=== PATIENT | female | born 1960 | race Caucasian/White ===

== ENCOUNTER 2018-09-06 12:05 | Emergency (ER) | payer MEDICARE ==
[~2018-09-06 12:05] MED LIST: ALEN70TA10 PO; BUTA-256 PO; CALC600T12 PO; CHOL200026 PO; CLON0.5T12 PO; CREON12 PO; CYAN1TAB44 PO; DOCU-272 PO; DULO60CA63 PO; FURO20TA4 PO; GABA-531 PO; HYDR100V3 IJ; HYDR20TA23 PO; HYDR8TAB18 PO; LACT10SO32 PO; LACT1CAP72 PO; LEVE500T19 PO; LEVE750T10 PO; LIDOP TP; METO10TA41 PO; MULT1TAB70 PO; PANT40TA25 PO; PROM50TA3 PO; RANI150T7 PO; RIVA10TA PO; SUCR1TAB PO; TAMS0.4C32 PO; TRAZ150T79 PO
[2018-09-06] MEDS ORDERED: METOCLOPRAMIDE 10 MG/2 ML VIAL ONE (13:26)
[2018-09-06 13:38] LABS: BASOPHILS % (AUTO) 1.3 % (0.0-5.0); EOSINOPHILS % (AUTO) 0.4 % (0.0-8.0); HEMATOCRIT 35.8 % (36-48); LYMPHOCYTES % (AUTO) 20.9 % (21.0-51.0); MEAN CORPUSCULAR HEMOGLOBIN 31.7 pg (27.0-33.0); MEAN CORPUSCULAR HGB CONC 32.9 g/dL (32.0-36.0); MEAN CORPUSCULAR VOLUME 96.4 fL (79-99); MONOCYTES % (AUTO) 9.3 % (3.0-13.0); NEUTROPHILS % (AUTO) 68.1 % (40.0-77.0); PLATELET COUNT (AUTO) 252 K/uL (130-400); RED BLOOD CELL COUNT(AUTO) 3.72 MIL/uL (4.00-5.50); RED CELL DISTRIBUTION WIDTH 14.9 % (11.0-15.5); WHITE BLOOD COUNT (AUTO) 11.1 K/uL (4.8-10.8)
[2018-09-06 13:53] LABS: INR 0.94 (0.85-1.15); PARTIAL THROMBOPLASTIN TIME 25.8 SEC (26.3-35.5); PROTHROMBIN TIME 9.9 SEC (9.6-11.6)
[2018-09-06 13:58] LABS: B-TYPE NATRIURETIC PEPTIDE 13 pg/mL (0-100)
[2018-09-06 14:07] LABS: ALBUMIN 3.2 g/dL (3.5-5.0); BILIRUBIN,TOTAL 0.3 mg/dL (0.2-1.0); CREATININE 0.7 mg/dL (0.5-1.5)
[2018-09-06 14:12] LABS: POTASSIUM 2.7 mmol/L (3.5-5.1)
[2018-09-06] MEDS ORDERED: MAGNESIUM OXIDE 400 MG TABLET PO ONE (14:25)
[2018-09-06] MEDS ORDERED: POTASSIUM BICARB/CIT AC 25 MEQ TABLET.EFF ONE (14:25)
[2018-09-06] MEDS ORDERED: ACETAMINOPHEN EXTRA STRENGTH 500 MG TABLET ONE (15:53)
== END 2018-09-06 16:49 | disposition home or self-care (01) ==
LOC: EDH 12:05
DX: E87.6 Hypokalemia (principal); R11.2 Nausea with vomiting, unspecified; R19.7 Diarrhea, unspecified
CPT/HCPCS: 36415; 71045; 80053; 82550; 83690; 83874; 83880; 84132; 84484 ×2; 85025; 85610; 85730; 93005 ×2; 96374; 99284; J2765

== ENCOUNTER 2018-09-15 22:23 | Emergency (ER) | payer MEDICARE ==
[2018-09-15] MEDS ORDERED: KETOROLAC TROMETHAMINE 15MG/ML ONE ×2 (23:03→23:53)
[2018-09-15] MEDS ORDERED: METOCLOPRAMIDE 10 MG/2 ML VIAL ONE (23:03)
[2018-09-15] MEDS ORDERED: SODIUM CHLORIDE 0.9% 50 ML IV ONE (23:04)
[2018-09-15 23:16] LABS: BASOPHILS % (AUTO) 0.7 % (0.0-5.0); EOSINOPHILS % (AUTO) 0.6 % (0.0-8.0); HEMATOCRIT 35.6 % (36-48); MEAN CORPUSCULAR HEMOGLOBIN 32.8 pg (27.0-33.0); MEAN CORPUSCULAR HGB CONC 33.3 g/dL (32.0-36.0); MEAN CORPUSCULAR VOLUME 98.3 fL (79-99); MONOCYTES % (AUTO) 8.4 % (3.0-13.0); NEUTROPHILS % (AUTO) 73.3 % (40.0-77.0); PLATELET COUNT (AUTO) 257 K/uL (130-400); RED BLOOD CELL COUNT(AUTO) 3.63 MIL/uL (4.00-5.50); RED CELL DISTRIBUTION WIDTH 15.5 % (11.0-15.5); WHITE BLOOD COUNT (AUTO) 9.2 K/uL (4.8-10.8)
[2018-09-15 23:25] LABS: INR 0.92 (0.85-1.15); PROTHROMBIN TIME 9.7 SEC (9.6-11.6)
[2018-09-15 23:27] LABS: CREATININE 0.7 mg/dL (0.5-1.5); POTASSIUM 3.8 mmol/L (3.5-5.1)
[2018-09-15 23:40] LABS: ALBUMIN 3.2 g/dL (3.5-5.0); BILIRUBIN,TOTAL 0.2 mg/dL (0.2-1.0); TOTAL PROTEIN, SERUM 6.9 g/dL (6.0-8.3)
[2018-09-15] MEDS ORDERED: ACETAMINOPHEN EXTRA STRENGTH 500 MG TABLET ONE (23:53)
[2018-09-16 00:18] LABS: APPEARANCE,URINE Clear (CLEAR); BILIRUBIN,URINE Negative (NEGATIVE); COLOR,URINE Yellow (YELLOW); GLUCOSE, URINE (UA) Negative (NEGATIVE); KETONES,URINE Trace mg/dL (NEGATIVE); LEUKOCYTE ESTERASE ,URINE Negative (NEGATIVE); NITRATE,URINE Positive (NEGATIVE); OCCULT BLOOD,URINE Trace (NEGATIVE); PH,URINE 5.5 (5.0-8.0); PROTEIN,URINE Trace (NEGATIVE)
[2018-09-16 00:34] LABS: BACTERIA,URINE Rare /HPF (None Seen); WBC,URINE 0-1 /HPF (0-1)
[2018-09-16 00:35] LABS: SQUAMOUS EPITHELIAL CELL,UR Few /HPF (0-2)
== END 2018-09-16 00:52 | disposition home or self-care (01) ==
LOC: EDH 22:23
DX: N39.0 Urinary tract infection, site not specified (principal); G89.29 Other chronic pain; M79.7 Fibromyalgia; M19.90 Unspecified osteoarthritis, unspecified site; Z90.710 Acquired absence of both cervix and uterus; Z90.49 Acquired absence of other specified parts of digestive tract; Z98.890 Other specified postprocedural states
CPT/HCPCS: 36415; 74176; 80053; 81001; 82550; 83690; 84484; 85025; 85610; 85730; 87077; 87088; 87186; 93005; 96374; 96375; 96376; 99284; J1885 ×2; J2765

== ENCOUNTER 2018-09-29 23:49 | Emergency (ER) | payer MEDICARE ==
[2018-09-30 02:00] LABS: BASOPHILS % (AUTO) 0.5 % (0.0-5.0); EOSINOPHILS % (AUTO) 0.6 % (0.0-8.0); HEMATOCRIT 38.5 % (36-48); LYMPHOCYTES % (AUTO) 9.1 % (21.0-51.0); MEAN CORPUSCULAR HEMOGLOBIN 32.7 pg (27.0-33.0); MEAN CORPUSCULAR HGB CONC 32.9 g/dL (32.0-36.0); MEAN CORPUSCULAR VOLUME 99.3 fL (79-99); MONOCYTES % (AUTO) 5.7 % (3.0-13.0); NEUTROPHILS % (AUTO) 84.1 % (40.0-77.0); NUCLEATED RED BLOOD CELLS 0.2 % (0.0-0.19); RED BLOOD CELL COUNT(AUTO) 3.88 MIL/uL (4.00-5.50); RED CELL DISTRIBUTION WIDTH 16.4 % (11.0-15.5)
[2018-09-30 02:10] LABS: CREATININE 0.6 mg/dL (0.5-1.5); POTASSIUM 3.8 mmol/L (3.5-5.1)
[2018-09-30] MEDS ORDERED: METHYLPREDNISOLONE SOD SUCC 40MG/ML 1ML ONE (02:12)
[2018-09-30] MEDS ORDERED: KETOROLAC TROMETHAMINE 60 MG/2 ML VIAL ONE (02:13)
[2018-09-30 02:14] LABS: ALBUMIN 3.4 g/dL (3.5-5.0); BILIRUBIN,TOTAL 0.3 mg/dL (0.2-1.0); TOTAL PROTEIN, SERUM 6.7 g/dL (6.0-8.3)
[2018-09-30 02:37] LABS: PLATELET COUNT (AUTO) 289 K/uL (130-400)
== END 2018-09-30 04:11 | disposition home or self-care (01) ==
LOC: EDH 23:49
DX: K86.1 Other chronic pancreatitis (principal); M79.7 Fibromyalgia; R94.6 Abnormal results of thyroid function studies; M81.0 Age-related osteoporosis without current pathological fracture; Z90.710 Acquired absence of both cervix and uterus; Z90.49 Acquired absence of other specified parts of digestive tract; Z79.899 Other long term (current) drug therapy
CPT/HCPCS: 36415; 80053; 82550; 83690; 84443; 84484; 85025; 87804 ×2; 93005; 96372 ×2; 99284; J1885; J2920

== ENCOUNTER 2019-01-18 09:51 | Inpatient (IN) | payer MEDICARE | END 2019-01-23 14:21 | disposition home or self-care (01) | LOC: EDH 09:51 → EDHIP 11:57 → 3CH 15:44 | DX: K85.90 Acute pancreatitis without necrosis or infection, unspecified (principal); E86.0 Dehydration; K86.1 Other chronic pancreatitis; R55 Syncope and collapse; K31.84 Gastroparesis; E66.01 Morbid (severe) obesity due to excess calories; E87.8 Other disorders of electrolyte and fluid balance, not elsewhere classified; B96.89 Other specified bacterial agents as the cause of diseases classified elsewhere; I10 Essential (primary) hypertension ==

== ENCOUNTER 2019-01-28 13:03 | Observation (INO) | payer MEDICARE ==
[~2019-01-28] VITALS: Ht 154.9 cm; Wt 103.7 kg
[~2019-01-28 13:03] MED LIST changes: -ALEN70TA10 PO; +BUPR100T13 PO; -BUTA-256 PO; -CALC600T12 PO; +CARV25TA PO; -CHOL200026 PO; +CHOL50002 PO; -CLON0.5T12 PO; -CYAN1TAB44 PO; -DOCU-272 PO; -DULO60CA63 PO; -FURO20TA4 PO; -GABA-531 PO; +GABA600T10 PO; +HYDR-3422 PO; +HYDR-4068 PO; -HYDR100V3 IJ; -HYDR20TA23 PO; -HYDR8TAB18 PO; -LACT10SO32 PO; -LACT1CAP72 PO; -LEVE500T19 PO; -LEVE750T10 PO; -LIDOP TP; +LORA1TAB3 PO; +LOSA100T58 PO; +MAGN400C PO; -METO10TA41 PO; +MULT-1203 PO; -MULT1TAB70 PO; -PANT40TA25 PO; +POTA-79 PO; +PRAS25CA9 PO; -PROM50TA3 PO; -RANI150T7 PO; -RIVA10TA PO; -SUCR1TAB PO; +SUCR1TAB2 PO; +TAMS-1 PO; -TAMS0.4C32 PO; -TRAZ150T79 PO
[2019-01-28 13:23] LABS: BASOPHILS % (AUTO) 0.7 % (0.0-5.0); EOSINOPHILS % (AUTO) 0.7 % (0.0-8.0); HEMATOCRIT 45.8 % (36-48); LYMPHOCYTES % (AUTO) 11.3 % (21.0-51.0); MEAN CORPUSCULAR HEMOGLOBIN 32.4 pg (27.0-33.0); MEAN CORPUSCULAR VOLUME 98.1 fL (79-99); MONOCYTES % (AUTO) 5.6 % (3.0-13.0); NEUTROPHILS % (AUTO) 81.7 % (40.0-77.0); NUCLEATED RED BLOOD CELLS 0.1 % (0.0-0.19); PLATELET COUNT (AUTO) 300 K/uL (130-400); RED BLOOD CELL COUNT(AUTO) 4.67 MIL/uL (4.00-5.50); RED CELL DISTRIBUTION WIDTH 13.9 % (11.0-15.5); WHITE BLOOD COUNT (AUTO) 14.7 K/uL (4.8-10.8)
[2019-01-28 13:31] LABS: CREATININE 0.9 mg/dL (0.5-1.5); POTASSIUM 4.1 mmol/L (3.5-5.1)
[2019-01-28 13:34] LABS: BILIRUBIN,TOTAL 0.8 mg/dL (0.2-1.0)
[2019-01-28 13:36] LABS: INR 0.9 (0.85-1.15); PARTIAL THROMBOPLASTIN TIME 22.7 SEC (26.3-35.5); PROTHROMBIN TIME 9.5 SEC (9.6-11.6)
[2019-01-28 13:58] LABS: APPEARANCE,URINE Clear (CLEAR); BILIRUBIN,URINE Negative (NEGATIVE); COLOR,URINE Dark Yellow (YELLOW); GLUCOSE, URINE (UA) Negative (NEGATIVE); KETONES,URINE Trace mg/dL (NEGATIVE); LEUKOCYTE ESTERASE ,URINE Trace (NEGATIVE); NITRATE,URINE Negative (NEGATIVE); OCCULT BLOOD,URINE Negative (NEGATIVE); PH,URINE 5.5 (5.0-8.0); PROTEIN,URINE Trace mg/dL (NEGATIVE)
[2019-01-28 14:04] LABS: RBC,URINE 0-1 /HPF (0-1); WBC,URINE 0-1 /HPF (0-1)
[2019-01-28 14:05] LABS: BACTERIA,URINE Rare /HPF (None Seen); MUCUS,URINE Few LPF (None Seen); SQUAMOUS EPITHELIAL CELL,UR Few /HPF (0-2)
[2019-01-28] MEDS ORDERED: SODIUM CHLORIDE 0.9% 1000ML 1,000 ML IV ONE (16:19)
[2019-01-28] MEDS ORDERED: METRONIDAZOLE 500MG/100ML BAG 100 ML ONE (16:19)
[2019-01-28] MEDS ORDERED: ONDANSETRON HCL 4 MG/2 ML VIAL ONE (16:19)
[2019-01-28] MEDS ORDERED: KETOROLAC TROMETHAMINE 15MG/ML ONE (16:19)
[2019-01-28] MEDS ORDERED: LEVOFLOXACIN 500 MG/D5W 100 ML 100 ML ONE (17:20)
[2019-01-28] MEDS ORDERED: SODIUM CHLORIDE 0.9% 1000ML 2,000 ML IV ONE (17:20)
[2019-01-28] MEDS ORDERED: MORPHINE SULFATE 2 MG/ML 1ML SYG ONE (17:21)
[2019-01-28 19:10] VITALS: BP 137/75
[2019-01-28] MEDS ORDERED: LOPE2 PO (20:42)
[2019-01-28] MEDS ORDERED: DIPH1TAB PO (20:42)
[2019-01-28] MEDS ORDERED: HYDR20TA23 PO (20:42)
[2019-01-28] MEDS ORDERED: BACL10TA PO (20:42)
[2019-01-28] MEDS ORDERED: [UNRECOGNIZED DRUG - CODE] IM (20:42)
[2019-01-28] MEDS ORDERED: PROM25 PO (20:42)
[2019-01-28] MEDS ORDERED: METOCLOPRAMIDE 10 MG/2 ML VIAL IVP PRN (21:00)
[2019-01-28] MEDS ORDERED: ALPRAZOLAM 0.5 MG TABLET PO PRN (21:00)
[2019-01-28] MEDS ORDERED: LABETALOL 20 MG/4 ML DISP.SYRIN IV PRN (21:00)
[2019-01-28] MEDS ORDERED: ACETAMINOPHEN 325 MG TAB PO PRN (21:00)
[2019-01-28] MEDS: ONDANSETRON HCL 4 MG/2 ML VIAL IVP PRN (21:43)
[2019-01-28] MEDS: SODIUM CHLORIDE 0.9% 1000ML 1,000 ML IV SCH (21:43)
[2019-01-28] MEDS: METRONIDAZOLE 500MG/100ML BAG 100 ML IV SCH (21:43)
[2019-01-28] MEDS: MORPHINE SULFATE 2 MG/ML 1ML SYG IVP PRN (21:44)
[2019-01-28 23:56] VITALS: BP 110/51
[2019-01-29] MEDS: MORPHINE SULFATE 2 MG/ML 1ML SYG IVP PRN ×4 (00:10→14:38)
[2019-01-29] MEDS ORDERED: HYDROXYZINE HCL 25 MG TABLET PO SCH (02:30)
[2019-01-29 04:20] VITALS: BP 130/74
[2019-01-29 05:23] LABS: BASOPHILS % (AUTO) 0.5 % (0.0-5.0); EOSINOPHILS % (AUTO) 2.3 % (0.0-8.0); HEMATOCRIT 36.4 % (36-48); LYMPHOCYTES % (AUTO) 30.9 % (21.0-51.0); MEAN CORPUSCULAR HGB CONC 33.1 g/dL (32.0-36.0); MEAN CORPUSCULAR VOLUME 99.7 fL (79-99); MONOCYTES % (AUTO) 8.5 % (3.0-13.0); NEUTROPHILS % (AUTO) 57.8 % (40.0-77.0); PLATELET COUNT (AUTO) 208 K/uL (130-400); RED BLOOD CELL COUNT(AUTO) 3.65 MIL/uL (4.00-5.50); RED CELL DISTRIBUTION WIDTH 13.9 % (11.0-15.5); WHITE BLOOD COUNT (AUTO) 5.9 K/uL (4.8-10.8)
[2019-01-29] MEDS: SUCRALFATE 1 GM TABLET PO SCH ×3 (06:30→16:21)
[2019-01-29] MEDS: METRONIDAZOLE 500MG/100ML BAG 100 ML IV SCH ×2 (06:30→16:21)
[2019-01-29] MEDS: SODIUM CHLORIDE 0.9% 1000ML 1,000 ML IV SCH (06:32)
[2019-01-29 07:00] VITALS: BP 122/67
[2019-01-29] MEDS ORDERED: CARVEDILOL 25 MG TABLET PO SCH (09:00)
[2019-01-29] MEDS ORDERED: LOSARTAN 100 MG TABLET PO SCH (09:00)
[2019-01-29] MEDS ORDERED: TAMSULOSIN HCL 0.4 MG CAP.ER.24H PO SCH (09:00)
[2019-01-29] MEDS ORDERED: POTASSIUM CHLORIDE 20 MEQ ERTAB PO SCH (09:00)
[2019-01-29] MEDS ORDERED: LEVOFLOXACIN 500 MG/D5W 100 ML 100 ML IV SCH (09:00)
[2019-01-29] MEDS ORDERED: **HM** DHEA 25MG PO SCH (09:00)
[2019-01-29] MEDS: BACLOFEN 10 MG TABLET PO SCH ×2 (09:00→16:21)
[2019-01-29] MEDS: GABAPENTIN 300 MG CAPSULE PO SCH ×2 (09:01→16:21)
[2019-01-29] MEDS: ONDANSETRON HCL 4 MG/2 ML VIAL IVP PRN (10:23)
[2019-01-29 11:00] VITALS: BP 113/69
--- NOTE | 2019-01-29 12:27 | NUR ---
DELROY Gardner met with pt who lives with her [id number]. Pt states assists with ADLS as needed, she has 2 walkers, no in home care services. Pt denies dc needs, plan is home at dc Addendum: 01/29/19 at 1228 by MANGO MORENO Amended: Links added.
[2019-01-29] MEDS ORDERED: BUPROPION HCL 150 MG PO SCH (21:00)
== END 2019-01-29 19:27 | disposition home or self-care (01) ==
LOC: EDH 13:03 → EDHIP 16:10 → 3CH 20:15
PROVIDERS: ADMIT Internal Medicine Pulmonary Disease; ATTEND Internal Medicine Pulmonary Disease
DX: K86.1 Other chronic pancreatitis (principal); E66.01 Morbid (severe) obesity due to excess calories; E86.0 Dehydration; M81.0 Age-related osteoporosis without current pathological fracture; K31.84 Gastroparesis; K52.9 Noninfective gastroenteritis and colitis, unspecified; K90.9 Intestinal malabsorption, unspecified; F41.9 Anxiety disorder, unspecified; Z90.710 Acquired absence of both cervix and uterus; Z79.899 Other long term (current) drug therapy
CPT/HCPCS: 36415 ×2; 74176; 80053; 81001; 82150; 82270; 82550; 83630; 83690; 85025 ×2; 85610; 85730; 87046; 87177; 87324; 93005; 96365; 96366; 96367; 96375; 96376; 99284; G0378 ×26; J1885; J1956 ×2; J2405 ×3; J2765; J3490 ×4; J7030 ×2

== ENCOUNTER 2019-09-17 17:19 | Emergency (ER) | payer MEDICARE ==
[~2019-09-17 17:19] MED LIST changes: +ACET-2743 PO; -BUPR100T13 PO; -CHOL50002 PO; -CREON12 PO; +DULO60CA64 PO; +FURO40TA7 PO; +HYDR20TA23 PO; +LIDO73LI TP; -MAGN400C PO; +OMEP40CA13 PO; -PRAS25CA9 PO; +PROM25 PO; -TAMS-1 PO; +TRAM50TA4 PO; +TUMS
[2019-09-17] MEDS ORDERED: ONDANSETRON 4 MG TABLET ONE (17:48)
[2019-09-17] MEDS ORDERED: DEXAMETHASONE SOD PHOSPHATE 10MG/ML 1ML VIAL ONE (17:48)
[2019-09-17] MEDS ORDERED: MORPHINE SULFATE 4 MG/1ML SYG ONE (17:49)
[2019-09-17] MEDS ORDERED: VALACYCLOVIR HCL 500 MG TABLET PO ONE (19:00)
== END 2019-09-17 18:25 | disposition home or self-care (01) ==
LOC: EDH 17:19
DX: B02.9 Zoster without complications (principal); M19.90 Unspecified osteoarthritis, unspecified site; Z90.710 Acquired absence of both cervix and uterus
CPT/HCPCS: 96372; 99283; J1100; J2270; Q0162

== ENCOUNTER 2019-11-07 20:24 | Emergency (ER) | payer MEDICARE ==
[2019-11-07 20:49] LABS: BASOPHILS % (AUTO) 0.4 % (0.0-5.0); EOSINOPHILS % (AUTO) 0.5 % (0.0-8.0); HEMATOCRIT 37.3 % (36-48); LYMPHOCYTES % (AUTO) 24.4 % (21.0-51.0); MEAN CORPUSCULAR HEMOGLOBIN 34.7 pg (27.0-33.0); MEAN CORPUSCULAR VOLUME 105.4 fL (79-99); MONOCYTES % (AUTO) 9.3 % (3.0-13.0); NEUTROPHILS % (AUTO) 63.6 % (40.0-77.0); PLATELET COUNT (AUTO) 250 K/uL (130-400); RED BLOOD CELL COUNT(AUTO) 3.54 MIL/uL (4.00-5.50); RED CELL DISTRIBUTION WIDTH 15.8 % (11.0-15.5); WHITE BLOOD COUNT (AUTO) 7.3 K/uL (4.8-10.8)
[2019-11-07 21:00] LABS: CREATININE 0.9 mg/dL (0.5-1.5); POTASSIUM 3.7 mmol/L (3.5-5.1)
[2019-11-07 21:03] LABS: INR 0.89 (0.85-1.15); PARTIAL THROMBOPLASTIN TIME 20.9 SEC (26.3-35.5); PROTHROMBIN TIME 9.7 SEC (9.6-11.6)
[2019-11-07 21:05] LABS: ALBUMIN 3.3 g/dL (3.5-5.0); BILIRUBIN,TOTAL 0.2 mg/dL (0.2-1.0); TOTAL PROTEIN, SERUM 6.8 g/dL (6.0-8.3)
[2019-11-07 21:13] LABS: B-TYPE NATRIURETIC PEPTIDE 29 pg/mL (0-100)
[2019-11-07] MEDS ORDERED: ONDANSETRON HCL 4 MG/2 ML VIAL ONE (21:13)
[2019-11-07] MEDS ORDERED: MORPHINE SULFATE 4 MG/1ML SYG ONE (21:14)
[2019-11-07] MEDS ORDERED: IOHEXOL-350 75 ML VIAL IV ONE (21:30)
[2019-11-07] MEDS ORDERED: ACETAMINOPHEN-CODEINE 300/30MG TAB ONE (22:47)
[2019-11-07] MEDS ORDERED: FUROSEMIDE 10 MG/ML 4ML VIAL ONE (22:48)
== END 2019-11-07 23:25 | disposition home or self-care (01) ==
LOC: EDH 20:24
DX: R60.0 Localized edema (principal); F41.9 Anxiety disorder, unspecified; M79.7 Fibromyalgia; R06.02 Shortness of breath; M19.90 Unspecified osteoarthritis, unspecified site; M81.0 Age-related osteoporosis without current pathological fracture; Z90.710 Acquired absence of both cervix and uterus; Z98.890 Other specified postprocedural states
CPT/HCPCS: 36415; 71045; 71275; 73590; 73630; 80053; 82550; 83880; 84484; 85025; 85610; 85730; 93005; 93970; 96374; 96375; 99285; J1940; J2270; J2405; Q9967

== ENCOUNTER 2019-11-17 13:55 | Emergency (ER) | payer MEDICARE ==
[2019-11-17 14:43] LABS: BASOPHILS % (AUTO) 0.3 % (0.0-5.0); EOSINOPHILS % (AUTO) 0.1 % (0.0-8.0); HEMATOCRIT 35.2 % (36-48); LYMPHOCYTES % (AUTO) 9.5 % (21.0-51.0); MEAN CORPUSCULAR HGB CONC 32.4 g/dL (32.0-36.0); MEAN CORPUSCULAR VOLUME 105.1 fL (79-99); MONOCYTES % (AUTO) 7.4 % (3.0-13.0); NEUTROPHILS % (AUTO) 81.2 % (40.0-77.0); PLATELET COUNT (AUTO) 227 K/uL (130-400); RED BLOOD CELL COUNT(AUTO) 3.35 MIL/uL (4.00-5.50); RED CELL DISTRIBUTION WIDTH 15.8 % (11.0-15.5); WHITE BLOOD COUNT (AUTO) 7.2 K/uL (4.8-10.8)
[2019-11-17 14:53] LABS: CREATININE 0.9 mg/dL (0.5-1.5); POTASSIUM 4.2 mmol/L (3.5-5.1)
[2019-11-17 14:58] LABS: ALBUMIN 3.3 g/dL (3.5-5.0); BILIRUBIN,TOTAL 0.3 mg/dL (0.2-1.0); TOTAL PROTEIN, SERUM 6.5 g/dL (6.0-8.3)
[2019-11-17] MEDS ORDERED: ONDANSETRON HCL 4 MG/2 ML VIAL ONE (15:44)
[2019-11-17] MEDS ORDERED: MORPHINE SULFATE 4 MG/1ML SYG ONE (15:44)
[2019-11-17 16:09] LABS: B-TYPE NATRIURETIC PEPTIDE 33 pg/mL (0-100)
== END 2019-11-17 17:36 | disposition home or self-care (01) ==
LOC: EDH 13:55
DX: I89.0 Lymphedema, not elsewhere classified (principal); G89.29 Other chronic pain; E66.01 Morbid (severe) obesity due to excess calories; M79.7 Fibromyalgia; I10 Essential (primary) hypertension; M19.90 Unspecified osteoarthritis, unspecified site
CPT/HCPCS: 36415; 71045; 80053; 83690; 83880; 84484; 85025; 85378; 93005; 93970; 96374; 96375; 99291; J2270; J2405

== ENCOUNTER 2019-12-03 08:01 | Inpatient (IN) | payer MEDICARE ==
[~2019-12-03] VITALS: Ht 154.9 cm; Wt 118.3 kg
[~2019-12-03 08:01] MED LIST changes: +HYDR20TA2 PO; -HYDR20TA23 PO
[2019-12-03 08:46] LABS: BASOPHILS % (AUTO) 0.7 % (0.0-5.0); EOSINOPHILS % (AUTO) 0.4 % (0.0-8.0); HEMATOCRIT 36.9 % (36-48); LYMPHOCYTES % (AUTO) 24.9 % (21.0-51.0); MEAN CORPUSCULAR HEMOGLOBIN 34.1 pg (27.0-33.0); MEAN CORPUSCULAR HGB CONC 32.2 g/dL (32.0-36.0); MEAN CORPUSCULAR VOLUME 105.7 fL (79-99); MONOCYTES % (AUTO) 9.5 % (3.0-13.0); NEUTROPHILS % (AUTO) 63.3 % (40.0-77.0); PLATELET COUNT (AUTO) 238 K/uL (130-400); RED BLOOD CELL COUNT(AUTO) 3.49 MIL/uL (4.00-5.50); RED CELL DISTRIBUTION WIDTH 15.7 % (11.0-15.5); WHITE BLOOD COUNT (AUTO) 7.4 K/uL (4.8-10.8)
[2019-12-03 08:54] LABS: CREATININE 0.8 mg/dL (0.5-1.5); POTASSIUM 3.8 mmol/L (3.5-5.1)
[2019-12-03 09:00] LABS: ALBUMIN 3.4 g/dL (3.5-5.0); BILIRUBIN,DIRECT 0.1 mg/dL (0.0-0.3); BILIRUBIN,TOTAL 0.3 mg/dL (0.2-1.0); TOTAL PROTEIN, SERUM 6.6 g/dL (6.0-8.3)
[2019-12-03] MEDS ORDERED: FUROSEMIDE 10 MG/ML 2ML VIAL ONE (09:07)
[2019-12-03] MEDS ORDERED: ONDANSETRON HCL 4 MG/2 ML VIAL ONE (09:07)
[2019-12-03] MEDS ORDERED: FUROSEMIDE 10 MG/ML 4ML VIAL ONE (09:08)
[2019-12-03] MEDS ORDERED: FENTANYL CITRATE PF 50 MCG/1 ML 2ML VIAL ONE (09:08)
[2019-12-03 09:17] LABS: B-TYPE NATRIURETIC PEPTIDE 12 pg/mL (0-100)
[2019-12-03] MEDS ORDERED: MORPHINE SULFATE 4 MG/1ML SYG ONE (11:13)
[2019-12-03] MEDS ORDERED: CEFTRIAXONE SODIUM 2 GM VIAL ONE (11:13)
[2019-12-03] MEDS ORDERED: SODIUM CHLORIDE 0.9% 100 ML IV ONE (11:24)
[2019-12-03] MEDS ORDERED: ACETAMINOPHEN 325 MG TAB PO PRN (12:00)
[2019-12-03] MEDS ORDERED: NITROGLYCERIN 0.4 MG SL TAB SL PRN (12:00)
[2019-12-03] MEDS ORDERED: LACTULOSE 20 GM/30 ML UDCUP PO PRN (12:00)
[2019-12-03] MEDS ORDERED: GUAIFENESIN-DM 200/20 MG 10 ML PO PRN (12:00)
[2019-12-03] MEDS ORDERED: HYDROCODONE/ACETAMINOPHEN 5/325 MG TAB PO SCH (12:00)
[2019-12-03] MEDS ORDERED: ONDANSETRON HCL 4 MG/2 ML VIAL IVP PRN (12:00)
[2019-12-03] MEDS ORDERED: CEFTRIAXONE SODIUM 1 GM IV SCH (12:00)
[2019-12-03] MEDS ORDERED: VANCOMYCIN PROTOCOL PER PHARMACY IV SCH (12:00)
[2019-12-03] MEDS ORDERED: ONDANSETRON HCL 4 MG/2 ML VIAL IVP SCH (12:00)
[2019-12-03] MEDS ORDERED: VANCOMYCIN 1GM+NS 250ML 250 ML IV ONE ×2 (12:28→12:39)
[2019-12-03] MEDS ORDERED: SODIUM CHLORIDE 0.9% 1000ML 1,000 ML IV SCH (13:30)
[2019-12-03 13:54] VITALS: BP 165/109
[2019-12-03] MEDS ORDERED: BUDE3CAP7 PO (14:24)
[2019-12-03] MEDS ORDERED: DEXL60CA3 PO (14:24)
[2019-12-03] MEDS ORDERED: HYDROXYZINE HCL 25 MG TABLET PO PRN (15:30)
[2019-12-03 15:39] VITALS: BP 128/85
--- NOTE | 2019-12-03 16:00 | NUR ---
NOTE PATIENT CAME IN DIRECT ADMIT WITH C/O SWELLING TO BLE. DX WAS CELLULITIS. DR CLEANING WAS CONSULTED AND HE CAME IN EARLIER TO SEE HER. HE DC'D ALL ABX AND STARTED JUST LASIX BID 40 MG IV. THERE IS SOME BRUISING NOTED TO SOME AREAS BLE DISTALLY BUT NO BREAKDOWN. EDEMATOUS LEGS AND FEET.
[2019-12-03] MEDS: HYDROCODONE/ACETAMINOPHEN 5/325 MG TAB PO PRN ×2 (16:27→23:17)
[2019-12-03] MEDS: FUROSEMIDE 10 MG/ML 4ML VIAL IV SCH (18:35)
[2019-12-03 20:00] VITALS: BP 159/104
[2019-12-03] MEDS ORDERED: TAMSULOSIN HCL 0.4 MG CAP.ER.24H PO SCH (20:00)
[2019-12-03 20:10] VITALS: BP 159/104
[2019-12-03] MEDS: FAMOTIDINE 20MG TAB 20 MG TAB PO SCH (20:22)
[2019-12-03] MEDS: CARVEDILOL 25 MG TABLET PO SCH (20:23)
[2019-12-03] MEDS: GABAPENTIN 300 MG CAPSULE PO SCH (20:23)
[2019-12-04] VITALS (7 sets, daily range): BP systolic 110–157; BP diastolic 74–82
[2019-12-04] MEDS ORDERED: MORPHINE SULFATE 2 MG/ML 1ML SYG ONE (01:31)
[2019-12-04 05:32] LABS: BASOPHILS % (AUTO) 0.6 % (0.0-5.0); EOSINOPHILS % (AUTO) 0.5 % (0.0-8.0); HEMATOCRIT 39.7 % (36-48); LYMPHOCYTES % (AUTO) 33.1 % (21.0-51.0); MEAN CORPUSCULAR HEMOGLOBIN 34.2 pg (27.0-33.0); MONOCYTES % (AUTO) 11.4 % (3.0-13.0); PLATELET COUNT (AUTO) 217 K/uL (130-400); RED BLOOD CELL COUNT(AUTO) 3.71 MIL/uL (4.00-5.50); WHITE BLOOD COUNT (AUTO) 6.2 K/uL (4.8-10.8)
[2019-12-04 05:40] LABS: ALBUMIN 3.4 g/dL (3.5-5.0); BILIRUBIN,TOTAL 0.3 mg/dL (0.2-1.0); CREATININE 0.8 mg/dL (0.5-1.5); POTASSIUM 4.1 mmol/L (3.5-5.1); TOTAL PROTEIN, SERUM 6.8 g/dL (6.0-8.3)
[2019-12-04] MEDS: FUROSEMIDE 10 MG/ML 4ML VIAL IV SCH ×2 (06:23→18:12)
[2019-12-04] MEDS: HYDROCODONE/ACETAMINOPHEN 5/325 MG TAB PO PRN (06:31)
[2019-12-04] MEDS: MORPHINE SULFATE 2 MG/ML 1ML SYG IVP PRN ×2 (08:32→23:37)
[2019-12-04] MEDS ORDERED: HYDROCORTISONE 20 MG TABLET PO SCH (09:00)
[2019-12-04] MEDS ORDERED: BUDESONIDE 3 MG CAP.ER.24H PO SCH (09:00)
[2019-12-04] MEDS: CARVEDILOL 25 MG TABLET PO SCH ×2 (09:55→20:38)
[2019-12-04] MEDS: DULOXETINE HCL 30 MG CAP PO SCH (09:56)
[2019-12-04] MEDS: MULTIVITAMIN TABLET PO SCH (09:56)
[2019-12-04] MEDS: LOSARTAN 100 MG TABLET PO SCH (09:56)
[2019-12-04] MEDS: GABAPENTIN 300 MG CAPSULE PO SCH ×3 (09:56→20:37)
[2019-12-04] MEDS: FAMOTIDINE 20MG TAB 20 MG TAB PO SCH (09:56)
[2019-12-04] MEDS: ENOXAPARIN SODIUM 40 MG/0.4 ML SYRINGE SQ SCH (09:58)
--- NOTE | 2019-12-04 11:07 | NUR ---
Notified Cece Oliver NP of difficulty accessing PIV. Requested access of Port a cath. Patient has no history of cancer. Per Dr. Veloz, hold accessing port at this time.
[2019-12-04] MEDS ORDERED: TRAMADOL HCL 50 MG TABLET PO SCH (14:00)
[2019-12-04] MEDS ORDERED: TRAMADOL HCL 50 MG TABLET PO PRN (15:45)
--- NOTE | 2019-12-04 16:27 | NUR ---
INITIAL: Met with pt this afternoon to discuss dcp. Pt mentions that she lives w her spouse. Prior to admission she was using a walker or wc for mobility. She mentions that she is independent w ADLS. Pt owns a rollator, sw, wc, sh chair and hosp bed. Per pt her spouse provides transportation where needed. Pt mentions that she feels safe and comfortable to return home at [place]. CM to continue to follow and wait for Md recommendations. Addendum: 12/04/19 at 1629 by JOE ABRAMS Amended: Links added.
[2019-12-04] MEDS: ONDANSETRON ODT 4 MG TAB SL PRN (16:39)
[2019-12-04] MEDS ORDERED: METHYLPREDNISOLONE SOD SUCC 125MG/2ML VIAL IM SCH (16:45)
--- NOTE | 2019-12-04 18:37 | NUR ---
Notified Dr. Ricardo regarding consult for possible adrenal insufficiency, reported extremity spasms and increased stuttering. Labs and medications reviewed. Per Dr. Ricardo, order 15 mg hydrocortisone daily in AM and 10 mg daily in PM. If patient still inpatient by 12/06/19, will see patient then, if not will follow up with patient in 1 week.
[2019-12-04] MEDS: PANTOPRAZOLE SODIUM 40 MG TABLET.DR PO SCH (20:37)
[2019-12-05 03:20] VITALS: BP 132/83
[2019-12-05] MEDS: FUROSEMIDE 10 MG/ML 4ML VIAL IV SCH ×2 (05:20→17:05)
[2019-12-05] MEDS: HYDROCODONE/ACETAMINOPHEN 5/325 MG TAB PO PRN (05:26)
[2019-12-05 05:50] LABS: BASOPHILS % (AUTO) 0.3 % (0.0-5.0); HEMATOCRIT 39.5 % (36-48); LYMPHOCYTES % (AUTO) 9.2 % (21.0-51.0); MEAN CORPUSCULAR HEMOGLOBIN 34.4 pg (27.0-33.0); MEAN CORPUSCULAR HGB CONC 32.4 g/dL (32.0-36.0); MEAN CORPUSCULAR VOLUME 106.2 fL (79-99); MONOCYTES % (AUTO) 2.4 % (3.0-13.0); PLATELET COUNT (AUTO) 248 K/uL (130-400); RED BLOOD CELL COUNT(AUTO) 3.72 MIL/uL (4.00-5.50); WHITE BLOOD COUNT (AUTO) 6.3 K/uL (4.8-10.8)
[2019-12-05 06:08] LABS: ALBUMIN 3.7 g/dL (3.5-5.0); BILIRUBIN,TOTAL 0.4 mg/dL (0.2-1.0); POTASSIUM 3.4 mmol/L (3.5-5.1); TOTAL PROTEIN, SERUM 7.6 g/dL (6.0-8.3)
[2019-12-05] MEDS ORDERED: LIDOCAINE HCL-MPF 1% 2ML VIAL IV PRN (06:15)
[2019-12-05] MEDS ORDERED: POTASSIUM CHLORIDE 20MEQ/100ML 100 ML IV PRN (06:15)
[2019-12-05] MEDS ORDERED: POTASSIUM CHLORIDE 10% ELIXIR 20 MEQ/15 ML UDCUP PO PRN (06:15)
[2019-12-05] MEDS: POTASSIUM CHLORIDE 20 MEQ ERTAB PO PRN ×2 (06:53→08:50)
[2019-12-05] MEDS: HYDROCORTISONE 20 MG TABLET PO SCH ×2 (08:48→16:51)
[2019-12-05] MEDS: DULOXETINE HCL 30 MG CAP PO SCH (08:49)
[2019-12-05] MEDS: CARVEDILOL 25 MG TABLET PO SCH ×2 (08:49→20:35)
[2019-12-05] MEDS: PANTOPRAZOLE SODIUM 40 MG TABLET.DR PO SCH ×2 (08:49→20:35)
[2019-12-05 08:50] VITALS: BP 165/99
[2019-12-05] MEDS: GABAPENTIN 300 MG CAPSULE PO SCH ×3 (08:50→20:35)
[2019-12-05] MEDS: MULTIVITAMIN TABLET PO SCH (08:50)
[2019-12-05] MEDS: LOSARTAN 100 MG TABLET PO SCH (08:50)
[2019-12-05] MEDS: MORPHINE SULFATE 2 MG/ML 1ML SYG IVP PRN ×2 (08:51→17:04)
[2019-12-05] MEDS: ENOXAPARIN SODIUM 40 MG/0.4 ML SYRINGE SQ SCH (08:51)
[2019-12-05 11:56] VITALS: BP 152/89
[2019-12-05 16:28] VITALS: BP 139/91
--- NOTE | 2019-12-05 19:00 | NUR ---
TWITCHING Pt has on and off twitching and tremors when she talks.She states she's been worked up for seizures in the past and at one point was placed on Keppra until another neurologist said it she does'nt have seizures.
[2019-12-05 20:48] VITALS: BP 148/79
[2019-12-06] VITALS (10 sets, daily range): BP systolic 126–157; BP diastolic 64–94
--- NOTE | 2019-12-06 01:00 | NUR ---
BEDBATH Pt incontinent of urine,bathed per Director Of Pupil Personnel Program.
[2019-12-06] MEDS: ONDANSETRON ODT 4 MG TAB SL PRN ×2 (01:32→20:19)
[2019-12-06] MEDS: MORPHINE SULFATE 2 MG/ML 1ML SYG IVP PRN ×3 (01:33→20:19)
--- NOTE | 2019-12-06 01:48 | NUR ---
PAIN/NAUSEA Pt medicated with Zofran for nausea and Morphine for c/o of pain to both legs.
[2019-12-06 06:10] LABS: BASOPHILS % (AUTO) 0.4 % (0.0-5.0); EOSINOPHILS % (AUTO) 0.3 % (0.0-8.0); HEMATOCRIT 39.1 % (36-48); LYMPHOCYTES % (AUTO) 21.1 % (21.0-51.0); MEAN CORPUSCULAR HEMOGLOBIN 35.3 pg (27.0-33.0); MEAN CORPUSCULAR HGB CONC 32.7 g/dL (32.0-36.0); MEAN CORPUSCULAR VOLUME 107.7 fL (79-99); NEUTROPHILS % (AUTO) 66.6 % (40.0-77.0); PLATELET COUNT (AUTO) 257 K/uL (130-400); RED BLOOD CELL COUNT(AUTO) 3.63 MIL/uL (4.00-5.50); RED CELL DISTRIBUTION WIDTH 15.1 % (11.0-15.5); WHITE BLOOD COUNT (AUTO) 7.7 K/uL (4.8-10.8)
[2019-12-06] MEDS: FUROSEMIDE 10 MG/ML 4ML VIAL IV SCH (06:17)
[2019-12-06] MEDS: HYDROCODONE/ACETAMINOPHEN 5/325 MG TAB PO PRN (06:17)
[2019-12-06 06:28] LABS: HEMOGLOBIN A1C 5.7 % (4.0-6.0)
[2019-12-06 06:30] LABS: ALBUMIN 3.4 g/dL (3.5-5.0); BILIRUBIN,TOTAL 0.4 mg/dL (0.2-1.0); CREATININE 0.9 mg/dL (0.5-1.5); POTASSIUM 3.5 mmol/L (3.5-5.1); THYROID STIMULATING HORMONE 0.32 uIU/mL (0.36-3.74); TOTAL PROTEIN, SERUM 6.9 g/dL (6.0-8.3)
[2019-12-06] MEDS: POTASSIUM CHLORIDE 20 MEQ ERTAB PO PRN ×2 (06:39→20:12)
[2019-12-06] MEDS: ENOXAPARIN SODIUM 40 MG/0.4 ML SYRINGE SQ SCH (08:34)
[2019-12-06] MEDS: GABAPENTIN 300 MG CAPSULE PO SCH ×3 (08:34→20:12)
[2019-12-06] MEDS: DULOXETINE HCL 30 MG CAP PO SCH (08:35)
[2019-12-06] MEDS: HYDROCORTISONE 20 MG TABLET PO SCH ×2 (08:35→16:14)
[2019-12-06] MEDS: MULTIVITAMIN TABLET PO SCH (08:35)
[2019-12-06] MEDS: LOSARTAN 100 MG TABLET PO SCH (08:35)
[2019-12-06] MEDS: CARVEDILOL 25 MG TABLET PO SCH ×2 (08:36→20:13)
[2019-12-06] MEDS: PANTOPRAZOLE SODIUM 40 MG TABLET.DR PO SCH ×2 (08:36→20:13)
[2019-12-07] VITALS (8 sets, daily range): BP systolic 119–157; BP diastolic 71–95
[2019-12-07] MEDS: MORPHINE SULFATE 2 MG/ML 1ML SYG IVP PRN ×3 (04:16→19:37)
[2019-12-07] MEDS: ONDANSETRON ODT 4 MG TAB SL PRN ×2 (04:17→19:36)
[2019-12-07 05:22] LABS: CREATININE 0.8 mg/dL (0.5-1.5); POTASSIUM 3.3 mmol/L (3.5-5.1)
[2019-12-07] MEDS: POTASSIUM CHLORIDE 20 MEQ ERTAB PO PRN ×3 (05:47→11:44)
[2019-12-07] MEDS: GABAPENTIN 300 MG CAPSULE PO SCH ×3 (08:37→20:40)
[2019-12-07] MEDS: HYDROCORTISONE 20 MG TABLET PO SCH ×2 (08:37→17:36)
[2019-12-07] MEDS: MULTIVITAMIN TABLET PO SCH (08:37)
[2019-12-07] MEDS: DULOXETINE HCL 30 MG CAP PO SCH (08:38)
[2019-12-07] MEDS: PANTOPRAZOLE SODIUM 40 MG TABLET.DR PO SCH ×2 (08:38→19:37)
[2019-12-07] MEDS: CARVEDILOL 25 MG TABLET PO SCH ×2 (08:38→19:36)
[2019-12-07] MEDS: LOSARTAN 100 MG TABLET PO SCH (08:38)
[2019-12-07] MEDS: ENOXAPARIN SODIUM 40 MG/0.4 ML SYRINGE SQ SCH (08:39)
[2019-12-07] MEDS ORDERED: PHENOL 177 ML BOTTLE PO PRN (10:30)
[2019-12-07] MEDS: LOPERAMIDE 1 MG/7.5 ML UDCUP PO PRN (13:25)
[2019-12-07] MEDS: LEVOFLOXACIN 500 MG/D5W 100 ML 100 ML IV SCH (13:26)
--- NOTE | 2019-12-07 14:46 | NUR ---
RD NOTIFICATION - FOOD PREFERENCES. Pt admitted with Cellulitis. BMI 49.6 with moderated Fluid Retention, as per EMR. RD spoke with Pt over the phone and discussed food preferences. Pt otherwise tolerating food, with no other nutrition concerns. Recommend 1.5L Fluid Restriction secondary to moderate fluid retention. Food preferences to be updated. RD to continue to monitor. Please notify as additional nutrition concerns arise. Thank you. Addendum: 12/07/19 at [address] RD Amended: Links added.
--- NOTE | 2019-12-07 19:37 | NUR ---
MORPHINE/ZOFRAN Pt requesting Morphine and zofran for c/o of pain to both legs.
--- NOTE | 2019-12-07 20:37 | NUR ---
MED EFFECT Pt denies pain or nausea.
[2019-12-08] VITALS (10 sets, daily range): BP systolic 117–151; BP diastolic 72–97
[2019-12-08] MEDS: MORPHINE SULFATE 2 MG/ML 1ML SYG IVP PRN ×4 (02:27→21:34)
[2019-12-08] MEDS: ONDANSETRON ODT 4 MG TAB SL PRN ×3 (02:27→14:31)
[2019-12-08 04:49] LABS: BILIRUBIN,TOTAL 0.4 mg/dL (0.2-1.0); CREATININE 0.8 mg/dL (0.5-1.5); POTASSIUM 3.9 mmol/L (3.5-5.1); TOTAL PROTEIN, SERUM 6.5 g/dL (6.0-8.3)
[2019-12-08] MEDS: LOSARTAN 100 MG TABLET PO SCH (08:07)
[2019-12-08] MEDS: HYDROCORTISONE 20 MG TABLET PO SCH ×2 (08:07→17:38)
[2019-12-08] MEDS: CARVEDILOL 25 MG TABLET PO SCH ×2 (08:08→21:33)
[2019-12-08] MEDS: MULTIVITAMIN TABLET PO SCH (08:08)
[2019-12-08] MEDS: PANTOPRAZOLE SODIUM 40 MG TABLET.DR PO SCH ×2 (08:08→21:34)
[2019-12-08] MEDS: DULOXETINE HCL 30 MG CAP PO SCH (08:09)
[2019-12-08] MEDS: ENOXAPARIN SODIUM 40 MG/0.4 ML SYRINGE SQ SCH (08:09)
[2019-12-08] MEDS: GABAPENTIN 300 MG CAPSULE PO SCH ×3 (08:19→21:34)
[2019-12-08] MEDS: LEVOFLOXACIN 500 MG/D5W 100 ML 100 ML IV SCH (14:30)
[2019-12-08] MEDS: LOPERAMIDE 1 MG/7.5 ML UDCUP PO PRN (14:36)
--- NOTE | 2019-12-08 16:34 | NUR ---
ABIGAIL Note: [facility] pending approval CM spoke to pt discussed MD recommendations for short term rehab, pt agreeable, telephone consent RODRICK obtained for [facility]. Faxed order, clinicals, PT, PASRR, Covid PAC Assessment, confirmation received. Spoke to Catherine will sent clinicals for approval. EMS arranged and faxed for tomorrow. Pt pending approval. Primary nurse aware. CM to cont to follow up.
[2019-12-09] VITALS (9 sets, daily range): BP systolic 92–152; BP diastolic 64–94
[2019-12-09] MEDS: MORPHINE SULFATE 2 MG/ML 1ML SYG IVP PRN ×4 (03:18→22:25)
[2019-12-09 06:23] LABS: CREATININE 0.9 mg/dL (0.5-1.5); POTASSIUM 4.6 mmol/L (3.5-5.1)
[2019-12-09] MEDS: DULOXETINE HCL 30 MG CAP PO SCH (08:23)
[2019-12-09] MEDS: HYDROCORTISONE 20 MG TABLET PO SCH ×2 (08:23→16:32)
[2019-12-09] MEDS: LOSARTAN 100 MG TABLET PO SCH (08:23)
[2019-12-09] MEDS: CARVEDILOL 25 MG TABLET PO SCH ×2 (08:24→22:12)
[2019-12-09] MEDS: GABAPENTIN 300 MG CAPSULE PO SCH ×3 (08:24→22:12)
[2019-12-09] MEDS: PANTOPRAZOLE SODIUM 40 MG TABLET.DR PO SCH ×2 (08:25→22:12)
[2019-12-09] MEDS: ENOXAPARIN SODIUM 40 MG/0.4 ML SYRINGE SQ SCH (08:25)
[2019-12-09] MEDS: MULTIVITAMIN TABLET PO SCH (08:25)
--- NOTE | 2019-12-09 09:00 | NUR ---
CM Note: [facility] Russos approval CM spoke to Catherine reynolds/[facility]. Pt has approval. EMS arranged and faxed for today, primary nurse aware to call [facility] once pt ready to DC. Primary nurse aware. CM to cont to follow up.
[2019-12-09] MEDS: ONDANSETRON ODT 4 MG TAB SL PRN (09:11)
[2019-12-09] MEDS: FUROSEMIDE 20 MG TABLET PO SCH (11:04)
[2019-12-09] MEDS: LOPERAMIDE 1 MG/7.5 ML UDCUP PO PRN (12:07)
[2019-12-10] VITALS: BP 100/65
[2019-12-10 04:00] VITALS: BP 129/89
[2019-12-10 05:47] LABS: BASOPHILS % (AUTO) 0.8 % (0.0-5.0); EOSINOPHILS % (AUTO) 0.9 % (0.0-8.0); HEMATOCRIT 38.4 % (36-48); LYMPHOCYTES % (AUTO) 27.6 % (21.0-51.0); MEAN CORPUSCULAR HEMOGLOBIN 34.6 pg (27.0-33.0); MEAN CORPUSCULAR VOLUME 108.2 fL (79-99); MONOCYTES % (AUTO) 11.4 % (3.0-13.0); NEUTROPHILS % (AUTO) 57.4 % (40.0-77.0); PLATELET COUNT (AUTO) 229 K/uL (130-400); RED BLOOD CELL COUNT(AUTO) 3.55 MIL/uL (4.00-5.50); RED CELL DISTRIBUTION WIDTH 14.5 % (11.0-15.5); WHITE BLOOD COUNT (AUTO) 6.3 K/uL (4.8-10.8)
[2019-12-10 08:00] VITALS: BP 144/76
[2019-12-10] MEDS: ENOXAPARIN SODIUM 40 MG/0.4 ML SYRINGE SQ SCH (09:39)
[2019-12-10] MEDS: DULOXETINE HCL 30 MG CAP PO SCH (09:40)
[2019-12-10] MEDS: GABAPENTIN 300 MG CAPSULE PO SCH ×2 (09:41→14:00)
[2019-12-10] MEDS: HYDROCORTISONE 20 MG TABLET PO SCH ×2 (09:41→17:00)
[2019-12-10] MEDS: LOSARTAN 100 MG TABLET PO SCH (09:41)
[2019-12-10] MEDS: PANTOPRAZOLE SODIUM 40 MG TABLET.DR PO SCH (09:41)
[2019-12-10] MEDS: MULTIVITAMIN TABLET PO SCH (09:42)
[2019-12-10] MEDS: CARVEDILOL 25 MG TABLET PO SCH (09:42)
[2019-12-10] MEDS: FUROSEMIDE 20 MG TABLET PO SCH (09:43)
[2019-12-10 12:00] VITALS: BP 127/68
[2019-12-10] MEDS: MORPHINE SULFATE 2 MG/ML 1ML SYG IVP PRN (13:54)
--- NOTE | 2019-12-10 15:24 | NUR ---
REPORT CALL TO SHERRILL MENDEZ LVN OF [facility]. WILL THE EMS FOR [employer].
[2019-12-10 16:00] VITALS: BP_SYST 103; BP_SYST 109; BP_SYST 118; BP_DIAS 63; BP_DIAS 71; BP_DIAS 80
== END 2019-12-10 18:15 | DRG 602 ==
LOC: EDH 08:01 → EDHIP 11:55 → 3BH 13:54
PROVIDERS: ADMIT Hospitalist; ATTEND Hospitalist
DX: L03.116 Cellulitis of left lower limb (principal); I50.31 Acute diastolic (congestive) heart failure; Z68.42 Body mass index [BMI] 45.0-49.9, adult; E27.40 Unspecified adrenocortical insufficiency; K50.90 Crohn's disease, unspecified, without complications; K86.1 Other chronic pancreatitis; E87.3 Alkalosis; J96.10 Chronic respiratory failure, unspecified whether with hypoxia or hypercapnia; E66.2 Morbid (severe) obesity with alveolar hypoventilation; C94.6 Myelodysplastic disease, not elsewhere classified; I11.0 Hypertensive heart disease with heart failure; L03.115 Cellulitis of right lower limb; M79.7 Fibromyalgia; I48.91 Unspecified atrial fibrillation; K31.84 Gastroparesis; R53.81 Other malaise; G25.0 Essential tremor; D53.9 Nutritional anemia, unspecified; N28.9 Disorder of kidney and ureter, unspecified; F32.9 Major depressive disorder, single episode, unspecified; E78.5 Hyperlipidemia, unspecified; G89.4 Chronic pain syndrome; K76.0 Fatty (change of) liver, not elsewhere classified; M45.9 Ankylosing spondylitis of unspecified sites in spine; M81.0 Age-related osteoporosis without current pathological fracture; M19.90 Unspecified osteoarthritis, unspecified site; B96.20 Unspecified Escherichia coli [E. coli] as the cause of diseases classified elsewhere; Z96.651 Presence of right artificial knee joint; Z87.11 Personal history of peptic ulcer disease; Z74.01 Bed confinement status; Z79.52 Long term (current) use of systemic steroids; Z79.899 Other long term (current) drug therapy; Z95.0 Presence of cardiac pacemaker; Z90.710 Acquired absence of both cervix and uterus; Z90.49 Acquired absence of other specified parts of digestive tract; Z83.3 Family history of diabetes mellitus; Z82.49 Family history of ischemic heart disease and other diseases of the circulatory system; Z82.5 Family history of asthma and other chronic lower respiratory diseases; Z82.3 Family history of stroke; Z82.0 Family history of epilepsy and other diseases of the nervous system
CPT/HCPCS: 36415; 70450; 71045; 74176; 80048; 80053; 80076; 82607; 82746; 82948; 83036; 83605; 83630; 83690; 83735; 83880; 84439; 84443; 84484; 85025; 85378; 87040; 87507; 93005; 93306; 93356; 94660; 97039; G0378; J0696; J1650; J1940; J1956; J2270; J2405; J2930; J3010; J3370

== ENCOUNTER → 2020-10-17 | Outpatient (CLI) | payer MEDICARE ==
[~2020-10-17] MED LIST changes: +BUDE3CAP7 PO; +DEXL60CA3 PO; -FURO40TA7 PO; -HYDR20TA2 PO; +HYDR20TA24 PO; -LIDO73LI TP; -POTA-79 PO; -SUCR1TAB2 PO
== END | disposition home or self-care (01) ==
LOC: SHCH 12:45
PROVIDERS: ATTEND Internal Medicine Cardiovascular Disease
DX: I87.2 Venous insufficiency (chronic) (peripheral) (principal)
CPT/HCPCS: 93970

== ENCOUNTER → 2021-03-15 | Outpatient (CLI) | payer MEDICARE ==
[~2021-03-15] MED LIST changes: -OMEP40CA13 PO; +OMEP40CA21 PO
== END | disposition home or self-care (01) ==
LOC: SHCH 15:38
PROVIDERS: ATTEND Internal Medicine Cardiovascular Disease
DX: G45.1 Carotid artery syndrome (hemispheric) (principal)
CPT/HCPCS: 93880

== ENCOUNTER 2021-06-12 11:36 | Emergency (ER) | payer MEDICARE ==
[~2021-06-12] VITALS: Ht 154.9 cm; Wt 127.0 kg
[2021-06-12 11:37] VITALS: BP 153/101
== END 2021-06-12 13:58 | disposition home or self-care (01) ==
LOC: EDH 11:36
DX: M79.605 Pain in left leg (principal); Z53.21 Procedure and treatment not carried out due to patient leaving prior to being seen by health care provider

== ENCOUNTER → 2021-09-04 | Outpatient (CLI) | payer MEDICARE | END | disposition home or self-care (01) | LOC: RAH 10:00 | PROVIDERS: ATTEND Internal Medicine Gastroenterology | DX: K21.9 Gastro-esophageal reflux disease without esophagitis (principal); Z90.49 Acquired absence of other specified parts of digestive tract | CPT/HCPCS: 74240 ==

== ENCOUNTER 2021-11-02 10:01 | Emergency (ER) | payer MEDICARE ==
[~2021-11-02] VITALS: Ht 154.9 cm; Wt 101.2 kg
[2021-11-02] MEDS ORDERED: SOLU-MEDROL 40MG VIAL IJ ONE (11:00)
[2021-11-02] MEDS ORDERED: KETOROLAC 30MG VIAL (30MG/ML) IM ONE (11:00)
[2021-11-02] MEDS ORDERED: HYDROCODONE/ACETAMINOPHEN 10/325 MG TAB PO ONE (11:00)
[2021-11-02 12:35] VITALS: BP 149/81
== END 2021-11-02 12:37 | disposition home or self-care (01) ==
LOC: EDH 10:01
DX: S80.11XA Contusion of right lower leg, initial encounter (principal); S80.12XA Contusion of left lower leg, initial encounter; I10 Essential (primary) hypertension; E78.00 Pure hypercholesterolemia, unspecified; I25.10 Atherosclerotic heart disease of native coronary artery without angina pectoris; Z79.1 Long term (current) use of non-steroidal anti-inflammatories (NSAID); Z79.52 Long term (current) use of systemic steroids; Z79.899 Other long term (current) drug therapy; X58.XXXA Exposure to other specified factors, initial encounter; Y93.89 Activity, other specified; Y92.89 Other specified places as the place of occurrence of the external cause; Y99.8 Other external cause status
CPT/HCPCS: 96372 ×2; 99284; J1885; J2920

== ENCOUNTER 2021-12-14 16:27 | Emergency (ER) | payer MEDICARE ==
[~2021-12-14] VITALS: Ht 154.9 cm; Wt 99.8 kg
[2021-12-14] MEDS ORDERED: CYCLOBENZAPRINE HCL 10 MG TABLET PO ONE (17:30)
[2021-12-14] MEDS ORDERED: KETOROLAC 30MG VIAL (30MG/ML) IVP ONE (17:30)
[2021-12-14 17:50] LABS: APPEARANCE,URINE Clear (CLEAR); BILIRUBIN,URINE Negative (NEGATIVE); COLOR,URINE Yellow (YELLOW); GLUCOSE, URINE (UA) TRACE mg/dL (NEGATIVE); KETONES,URINE Trace mg/dL (NEGATIVE); LEUKOCYTE ESTERASE ,URINE Negative (NEGATIVE); NITRATE,URINE Negative (NEGATIVE); OCCULT BLOOD,URINE Negative (NEGATIVE); PROTEIN,URINE POS 1+ mg/dL (NEGATIVE); UROBILINOGEN,URINE 0.2 mg/dL (0.2-1.0)
[2021-12-14 17:50] LABS: BASOPHILS % (AUTO) 0.5 % (0.0-5.0); EOSINOPHILS % (AUTO) 0.3 % (0.0-8.0); HEMATOCRIT 33.8 % (36-48); LYMPHOCYTES % (AUTO) 20.6 % (21.0-51.0); MEAN CORPUSCULAR HEMOGLOBIN 34.2 pg (27.0-33.0); MEAN CORPUSCULAR HGB CONC 31.4 g/dL (32.0-36.0); NEUTROPHILS % (AUTO) 68.7 % (40.0-77.0); PLATELET COUNT (AUTO) 207 K/uL (130-400); RED CELL DISTRIBUTION WIDTH 13.6 % (11.0-15.5); WHITE BLOOD COUNT (AUTO) 6.4 K/uL (4.8-10.8)
[2021-12-14 17:59] LABS: CREATININE 0.6 mg/dL (0.5-1.5); POTASSIUM 3.7 mmol/L (3.5-5.1)
[2021-12-14 18:07] LABS: ALBUMIN 3.2 g/dL (3.5-5.0); BILIRUBIN,TOTAL 0.2 mg/dL (0.2-1.0); TOTAL PROTEIN, SERUM 6.1 g/dL (6.0-8.3)
[2021-12-14] MEDS ORDERED: ONDA4TAB10 PO (18:49)
[2021-12-14 19:03] VITALS: BP 144/88
[2021-12-14 19:18] LABS: BACTERIA,URINE Rare /HPF (None Seen); MUCUS,URINE Few LPF (None Seen); RBC,URINE None Seen /HPF (0-1); SQUAMOUS EPITHELIAL CELL,UR None Seen /HPF (0-2); WBC,URINE 0-1 /HPF (0-1)
== END 2021-12-14 19:15 | disposition home or self-care (01) ==
LOC: EDH 16:27
DX: D64.9 Anemia, unspecified (principal); R11.0 Nausea; G89.4 Chronic pain syndrome; I48.91 Unspecified atrial fibrillation; K21.9 Gastro-esophageal reflux disease without esophagitis; M79.7 Fibromyalgia; M85.80 Other specified disorders of bone density and structure, unspecified site; M41.9 Scoliosis, unspecified; Z79.899 Other long term (current) drug therapy; Z90.49 Acquired absence of other specified parts of digestive tract
CPT/HCPCS: 36415; 71045; 80053; 81001; 83690; 84484; 85025; 96374; 99284; J1885

== ENCOUNTER 2021-12-31 19:34 | Emergency (ER) | payer MEDICARE ==
[~2021-12-31] VITALS: Ht 154.9 cm; Wt 104.3 kg
[~2021-12-31 19:34] MED LIST changes: +ONDA4TAB10 PO
[2021-12-31 20:51] LABS: BASOPHILS % (AUTO) 0.4 % (0.0-5.0); EOSINOPHILS % (AUTO) 0.7 % (0.0-8.0); HEMATOCRIT 34.2 % (36-48); LYMPHOCYTES % (AUTO) 14.6 % (21.0-51.0); MEAN CORPUSCULAR HEMOGLOBIN 34.2 pg (27.0-33.0); MEAN CORPUSCULAR HGB CONC 31.9 g/dL (32.0-36.0); MEAN CORPUSCULAR VOLUME 107.2 fL (79-99); NEUTROPHILS % (AUTO) 74.3 % (40.0-77.0); PLATELET COUNT (AUTO) 188 K/uL (130-400); RED BLOOD CELL COUNT(AUTO) 3.19 MIL/uL (4.00-5.50); RED CELL DISTRIBUTION WIDTH 13.5 % (11.0-15.5); WHITE BLOOD COUNT (AUTO) 7.4 K/uL (4.8-10.8)
[2021-12-31 20:57] LABS: APPEARANCE,URINE Clear (CLEAR); BILIRUBIN,URINE Negative (NEGATIVE); COLOR,URINE Yellow (YELLOW); GLUCOSE, URINE (UA) Negative (NEGATIVE); KETONES,URINE Negative (NEGATIVE); LEUKOCYTE ESTERASE ,URINE Trace (NEGATIVE); NITRATE,URINE Negative (NEGATIVE); OCCULT BLOOD,URINE Negative (NEGATIVE); PH,URINE 5.5 (5.0-8.0); PROTEIN,URINE Negative (NEGATIVE); UROBILINOGEN,URINE 0.2 mg/dL (0.2-1.0)
[2021-12-31] MEDS ORDERED: NALOXONE HCL 0.4 MG/1 ML ML IVP SCH (21:00)
[2021-12-31 21:03] LABS: CREATININE 0.6 mg/dL (0.5-1.5); POTASSIUM 3.4 mmol/L (3.5-5.1)
[2021-12-31 21:06] LABS: AMPHET/METH SCREEN,URINE NEGATIVE (NEGATIVE); BARBITURATE SCREEN, URINE NEGATIVE (NEGATIVE); BENZODIAZEPINES SCREEN,URINE NEGATIVE (NEGATIVE); CANNABINOID SCREEN,URINE POSITIVE (NEGATIVE); COCAINE SCREEN,URINE NEGATIVE (NEGATIVE); OPIATE SCREEN,URINE NEGATIVE (NEGATIVE); PHENCYCLIDINE SCREEN,URINE NEGATIVE (NEGATIVE)
[2021-12-31 21:14] LABS: ALBUMIN 3.2 g/dL (3.5-5.0); BILIRUBIN,TOTAL 0.2 mg/dL (0.2-1.0); TOTAL PROTEIN, SERUM 6.3 g/dL (6.0-8.3)
[2021-12-31 21:15] LABS: BACTERIA,URINE Moderate /HPF (None Seen); RBC,URINE 0-1 /HPF (0-1); SQUAMOUS EPITHELIAL CELL,UR Rare /HPF (0-2)
[2021-12-31] MEDS ORDERED: CEFTRIAXONE 1G VIAL IVP ONE (21:30)
[2021-12-31] MEDS ORDERED: CEPH500B PO (22:31)
[2021-12-31 22:57] VITALS: BP 143/87
== END 2021-12-31 23:16 | disposition home or self-care (01) ==
LOC: EDH 19:34
DX: M54.2 Cervicalgia (principal); M54.6 Pain in thoracic spine; M54.50 Low back pain, unspecified; N39.0 Urinary tract infection, site not specified; F12.10 Cannabis abuse, uncomplicated; E66.01 Morbid (severe) obesity due to excess calories; Z68.41 Body mass index [BMI] 40.0-44.9, adult
CPT/HCPCS: 36415; 71045; 72125; 72128; 72131; 80053; 80305; 81001; 84484; 85025; 87077; 87088; 87186; 93005; 96374; 96375; 99285; J0696; J2310

== ENCOUNTER → 2022-05-15 | Outpatient (CLI) | payer MEDICARE ==
[~2022-05-15] MED LIST changes: +ALBUTEROL 0.083% 2.5 MG/3 ML INH IH ONE; +CEPH500B PO
== END | disposition home or self-care (01) ==
LOC: RESP 09:31
PROVIDERS: ATTEND Internal Medicine
DX: E66.2 Morbid (severe) obesity with alveolar hypoventilation (principal)
CPT/HCPCS: 94060; 94727; 94729

== ENCOUNTER 2022-06-08 17:23 | Emergency (ER) | payer MEDICARE ==
[~2022-06-08] VITALS: Ht 154.9 cm; Wt 104.3 kg
[~2022-06-08 17:23] MED LIST changes: -ALBUTEROL 0.083% 2.5 MG/3 ML INH IH ONE
[2022-06-08 18:00] LABS: BASOPHILS % (AUTO) 1.1 % (0.0-5.0); EOSINOPHILS % (AUTO) 2.3 % (0.0-8.0); HEMATOCRIT 36.8 % (36-48); LYMPHOCYTES % (AUTO) 28.2 % (21.0-51.0); MEAN CORPUSCULAR HEMOGLOBIN 30.3 pg (27.0-33.0); MEAN CORPUSCULAR HGB CONC 31.8 g/dL (32.0-36.0); MEAN CORPUSCULAR VOLUME 95.3 fL (79-99); NEUTROPHILS % (AUTO) 55.9 % (40.0-77.0); PLATELET COUNT (AUTO) 380 K/uL (130-400); RED BLOOD CELL COUNT(AUTO) 3.86 MIL/uL (4.00-5.50); RED CELL DISTRIBUTION WIDTH 16.5 % (11.0-15.5); WHITE BLOOD COUNT (AUTO) 8.4 K/uL (4.8-10.8)
[2022-06-08] MEDS ORDERED: ONDANSETRON 4MG INJ IVP ONE (18:00)
[2022-06-08] MEDS ORDERED: MORPHINE 2 MG SYG IVP ONE (18:00)
[2022-06-08] MEDS ORDERED: LACTATED RINGERS 1000ML 1,000 ML IV ONE (18:00)
[2022-06-08 18:09] LABS: CREATININE 0.6 mg/dL (0.5-1.5); POTASSIUM 3.1 mmol/L (3.5-5.1)
[2022-06-08 18:13] LABS: ALBUMIN 2.9 g/dL (3.5-5.0); TOTAL PROTEIN, SERUM 6.9 g/dL (6.0-8.3)
[2022-06-08 19:40] LABS: APPEARANCE,URINE CLEAR (CLEAR); BILIRUBIN,URINE NEGATIVE (NEGATIVE); COLOR,URINE YELLOW (YELLOW); GLUCOSE, URINE (UA) NEGATIVE (NEGATIVE); KETONES,URINE >=80 mg/dL (NEGATIVE); LEUKOCYTE ESTERASE ,URINE TRACE Leu/uL (NEGATIVE); NITRATE,URINE POSITIVE (NEGATIVE); OCCULT BLOOD,URINE NEGATIVE (NEGATIVE); PROTEIN,URINE NEGATIVE (NEGATIVE); UROBILINOGEN,URINE 0.2 mg/dL (0.2-1.0)
[2022-06-08 19:46] LABS: RBC,URINE 0-1 /HPF (0-1)
[2022-06-08 19:47] LABS: BACTERIA,URINE Few /HPF (None Seen)
[2022-06-08 19:48] LABS: OTHER CRYSTALS,URINE SODIUM URATES 1+ /LPF (None Seen); SQUAMOUS EPITHELIAL CELL,UR Few /HPF (0-2)
[2022-06-08] MEDS ORDERED: ACETAMINOPHEN 325 MG TAB PO ONE (20:30)
[2022-06-08] MEDS ORDERED: CEFTRIAXONE 1G VIAL IVP ONE (20:30)
[2022-06-08] MEDS ORDERED: KCL 20 MEQ ERTAB PO ONE (20:30)
[2022-06-08 21:00] VITALS: BP 137/70
[2022-06-08] MEDS ORDERED: MACR100 PO (21:00)
== END 2022-06-08 22:09 | disposition home or self-care (01) ==
LOC: EDH 17:23
DX: N39.0 Urinary tract infection, site not specified (principal); E87.1 Hypo-osmolality and hyponatremia; E87.6 Hypokalemia; G89.29 Other chronic pain; M54.50 Low back pain, unspecified; I10 Essential (primary) hypertension; I25.10 Atherosclerotic heart disease of native coronary artery without angina pectoris; M79.7 Fibromyalgia; E78.00 Pure hypercholesterolemia, unspecified; Z68.41 Body mass index [BMI] 40.0-44.9, adult; Z90.49 Acquired absence of other specified parts of digestive tract
CPT/HCPCS: 99284; 96374; 96375; 96361; 80053; 83690; 85025; 87077; 87088; 87186; 81001; 36415; 93005; J7120; J0696; J2405

== ENCOUNTER → 2022-10-09 | Outpatient (CLI) | payer MEDICARE ==
[~2022-10-09] MED LIST changes: +ATOR20TA65 PO; +BACL10TA PO; +BUSP10TA3 PO; -CARV25TA PO; -CEPH500B PO; +CLOP75TA32 PO; +COLE1TAB2 PO; -DEXL60CA3 PO; +DEXL60CA6 PO; +DICY20TA3 PO; +FAMO40TA7 PO; +FURO40TA5 PO; -HYDR-4068 PO; +HYDR100T27 PO; +LORA-192 PO; -PROM25 PO; +PROM50TA3 PO; +TAMS-1 PO
[2022-10-09 16:45] LABS: T4 (THYROXINE) 3.9 ug/dL (4.7-13.3); THYROID STIMULATING HORMONE 1.1 uIU/mL (0.36-3.74)
== END | disposition home or self-care (01) ==
LOC: LAB 13:56
PROVIDERS: ATTEND Internal Medicine Cardiovascular Disease
DX: I10 Essential (primary) hypertension (principal); E78.5 Hyperlipidemia, unspecified; I87.2 Venous insufficiency (chronic) (peripheral); Z96.651 Presence of right artificial knee joint
CPT/HCPCS: 36415; 84436; 84443; 84479

== ENCOUNTER → 2022-10-09 | Outpatient (CLI) | payer MEDICARE | END | disposition home or self-care (01) | LOC: SHCH 13:00 | PROVIDERS: ATTEND Internal Medicine Cardiovascular Disease | DX: G45.1 Carotid artery syndrome (hemispheric) (principal); I10 Essential (primary) hypertension; E78.5 Hyperlipidemia, unspecified; I87.2 Venous insufficiency (chronic) (peripheral); Z96.651 Presence of right artificial knee joint | CPT/HCPCS: 36415; 84436; 84443; 84479; 93880 ==

== ENCOUNTER 2023-02-24 00:44 | Emergency (ER) | payer MEDICARE ==
[~2023-02-24] VITALS: Ht 154.9 cm; Wt 108.0 kg
[~2023-02-24 00:44] MED LIST changes: -LORA1TAB3 PO; -LOSA100T58 PO; +LOSA100T59 PO; -OMEP40CA21 PO; -TRAM50TA4 PO; -TUMS
[2023-02-24 01:53] LABS: INR 0.93 (0.85-1.15); PROTHROMBIN TIME 10.2 SEC (9.6-11.6)
[2023-02-24 01:54] LABS: PARTIAL THROMBOPLASTIN TIME 24.1 SEC (26.3-35.5)
[2023-02-24 01:55] LABS: CREATININE 0.8 mg/dL (0.5-1.5); POTASSIUM 3.9 mmol/L (3.5-5.1)
[2023-02-24 02:00] LABS: ALBUMIN 3.8 g/dL (3.5-5.0); TOTAL PROTEIN, SERUM 7.5 g/dL (6.0-8.3)
[2023-02-24 02:07] LABS: BASOPHILS % (AUTO) 0.6 % (0.0-5.0); EOSINOPHILS % (AUTO) 0.7 % (0.0-8.0); HEMATOCRIT 37.7 % (36-48); LYMPHOCYTES % (AUTO) 20.7 % (21.0-51.0); MEAN CORPUSCULAR HEMOGLOBIN 27.4 pg (27.0-33.0); MEAN CORPUSCULAR VOLUME 88.3 fL (79-99); MONOCYTES % (AUTO) 7.6 % (3.0-13.0); PLATELET COUNT (AUTO) 303 K/uL (130-400); RED BLOOD CELL COUNT(AUTO) 4.27 MIL/uL (4.00-5.50); RED CELL DISTRIBUTION WIDTH 15.9 % (11.0-15.5); WHITE BLOOD COUNT (AUTO) 10.4 K/uL (4.8-10.8)
[2023-02-24 02:58] LABS: BILIRUBIN,URINE NEGATIVE (NEGATIVE); COLOR,URINE YELLOW (YELLOW); GLUCOSE, URINE (UA) NEGATIVE (NEGATIVE); KETONES,URINE NEGATIVE (NEGATIVE); LEUKOCYTE ESTERASE ,URINE NEGATIVE Leu/uL (NEGATIVE); NITRATE,URINE NEGATIVE (NEGATIVE); OCCULT BLOOD,URINE NEGATIVE (NEGATIVE); PH,URINE 5.5 (5.0-8.0); PROTEIN,URINE 50 mg/dL (NEGATIVE); UROBILINOGEN,URINE 0.2 mg/dL (0.2-1.0)
[2023-02-24 03:01] LABS: APPEARANCE,URINE CLEAR (CLEAR)
[2023-02-24 03:14] VITALS: BP 127/76; PULSE 83; RESP 15; O2SAT 97
[2023-02-24] MEDS ORDERED: ACETAMINOPHEN 325 MG TAB PO ONE (03:30)
== END 2023-02-24 03:48 | disposition home or self-care (01) ==
LOC: EDH 00:44
DX: S09.8XXA Other specified injuries of head, initial encounter (principal); I11.0 Hypertensive heart disease with heart failure; I50.9 Heart failure, unspecified; F41.9 Anxiety disorder, unspecified; I48.91 Unspecified atrial fibrillation; K21.9 Gastro-esophageal reflux disease without esophagitis; M79.7 Fibromyalgia; Z79.899 Other long term (current) drug therapy; Z95.5 Presence of coronary angioplasty implant and graft; Z90.49 Acquired absence of other specified parts of digestive tract; Z90.710 Acquired absence of both cervix and uterus; Z98.890 Other specified postprocedural states; W18.39XA Other fall on same level, initial encounter; Y93.89 Activity, other specified; Y92.89 Other specified places as the place of occurrence of the external cause; Y99.8 Other external cause status
CPT/HCPCS: 36415; 70450; 71045; 80053; 81003; 82550; 83880; 84484; 85025; 85610; 85730; 93005

== ENCOUNTER 2023-03-03 12:23 | Emergency (ER) | payer MEDICARE ==
[~2023-03-03] VITALS: Ht 154.9 cm; Wt 99.8 kg
[2023-03-03 13:31] LABS: BASOPHILS # (AUTO) 0.05 K/uL (0.00-0.20); BASOPHILS % (AUTO) 0.6 % (0.0-5.0); EOSINOPHILS # (AUTO) 0.02 K/uL (0.00-0.70); EOSINOPHILS % (AUTO) 0.2 % (0.0-8.0); HEMATOCRIT 35.6 % (36-48); IMMATURE GRANULOCYTE ABSOLUTE 0.08 K/uL (0-1); LYMPHOCYTES # (AUTO) 1.1 K/uL (1.0-4.8); LYMPHOCYTES % (AUTO) 12.3 % (21.0-51.0); MEAN CORPUSCULAR HEMOGLOBIN 26.8 pg (27.0-33.0); MEAN CORPUSCULAR HGB CONC 30.6 g/dL (32.0-36.0); MEAN CORPUSCULAR VOLUME 87.5 fL (79-99); MONOCYTES # (AUTO) 0.5 K/uL (0.1-1.0); MONOCYTES % (AUTO) 5.2 % (3.0-13.0); NEUTROPHILS # (AUTO) 7.3 K/uL (1.8-7.7); NEUTROPHILS % (AUTO) 80.8 % (40.0-77.0); PLATELET COUNT (AUTO) 280 K/uL (130-400); RED BLOOD CELL COUNT(AUTO) 4.07 MIL/uL (4.00-5.50); RED CELL DISTRIBUTION WIDTH 16.2 % (11.0-15.5)
[2023-03-03 13:47] LABS: CREATININE 0.7 mg/dL (0.5-1.5); POTASSIUM 4.1 mmol/L (3.5-5.1)
[2023-03-03 13:52] LABS: ALBUMIN 3.3 g/dL (3.5-5.0); BILIRUBIN,TOTAL 0.2 mg/dL (0.2-1.0); TOTAL PROTEIN, SERUM 7.1 g/dL (6.0-8.3)
[2023-03-03 16:27] LABS: INR 0.93 (0.85-1.15)
[2023-03-03 16:28] LABS: PARTIAL THROMBOPLASTIN TIME 23.7 SEC (26.3-35.5)
[2023-03-03 17:42] VITALS: BP 135/72; PULSE 86; RESP 18; O2SAT 97
== END 2023-03-03 17:44 | disposition home or self-care (01) ==
LOC: EDH 12:23
DX: R55 Syncope and collapse (principal); W18.30XA Fall on same level, unspecified, initial encounter; Y93.89 Activity, other specified; Y92.89 Other specified places as the place of occurrence of the external cause; Y99.8 Other external cause status
CPT/HCPCS: 36415; 70450; 72125; 72190; 80053; 84484; 85025; 85610; 85730; 93005

== ENCOUNTER 2023-04-15 10:28 | Day surgery (SDC) | payer MEDICARE ==
[~2023-04-15] VITALS: Ht 154.9 cm; Wt 104.9 kg
[2023-04-15] VITALS (8 sets, daily range): BP systolic 154–177; BP diastolic 88–98; PULSE 78–90; RESP 15–20
[2023-04-15] MEDS ORDERED: ACET325C6 PO (12:56)
[2023-04-15] MEDS ORDERED: CHOL100046 PO (12:56)
[2023-04-15] MEDS ORDERED: MELA5TAB20 PO (12:56)
[2023-04-15] MEDS ORDERED: CARV25TA PO (12:56)
[2023-04-15] MEDS ORDERED: FOLIC ACID PO (12:56)
[2023-04-15] MEDS ORDERED: [UNRECOGNIZED DRUG - CODE] PO (12:56)
[2023-04-15] MEDS ORDERED: DIPH1TAB PO (12:56)
[2023-04-15] MEDS ORDERED: ONDA-104 PO (12:56)
[2023-04-15] MEDS ORDERED: AMLO-257 PO (12:56)
[2023-04-15] MEDS ORDERED: MAGNESIUM PO (12:56)
[2023-04-15] MEDS ORDERED: NITR0.3T11 SL (12:56)
[2023-04-15] MEDS ORDERED: CREON12 PO (12:56)
[2023-04-15] MEDS ORDERED: HYDR20TA24 PO (12:56)
[2023-04-15] MEDS ORDERED: IBUP200C5 PO (12:56)
[2023-04-15] MEDS ORDERED: PREGNENOLONE PO (12:56)
[2023-04-15] MEDS ORDERED: PROPOFOL 10 MG/ML 20ML VIAL IV ONE (14:16)
== END 2023-04-15 16:40 | disposition home or self-care (01) ==
LOC: ENDO 10:28 → DAH 10:28 → ENDO 16:40
PROVIDERS: ATTEND Internal Medicine Gastroenterology
DX: R10.13 Epigastric pain (principal); R10.11 Right upper quadrant pain; K21.00 Gastro-esophageal reflux disease with esophagitis, without bleeding; K57.30 Diverticulosis of large intestine without perforation or abscess without bleeding; I10 Essential (primary) hypertension; G47.33 Obstructive sleep apnea (adult) (pediatric); I25.10 Atherosclerotic heart disease of native coronary artery without angina pectoris; E66.01 Morbid (severe) obesity due to excess calories; K76.0 Fatty (change of) liver, not elsewhere classified; M79.7 Fibromyalgia; Z87.19 Personal history of other diseases of the digestive system; Z87.11 Personal history of peptic ulcer disease; Z90.710 Acquired absence of both cervix and uterus; Z90.49 Acquired absence of other specified parts of digestive tract; Z98.890 Other specified postprocedural states; Z80.0 Family history of malignant neoplasm of digestive organs; Z82.49 Family history of ischemic heart disease and other diseases of the circulatory system; Z83.3 Family history of diabetes mellitus; Z83.438 Family history of other disorder of lipoprotein metabolism and other lipidemia; Z68.41 Body mass index [BMI] 40.0-44.9, adult
CPT/HCPCS: 86677; 36415; 88305; 43239; J2704; A4620; A4215 ×2; A4223; A7002; A4222; A4221; A4663; J7030; A4606; J3490

== ENCOUNTER 2023-12-06 15:37 | Emergency (ER) | payer MEDICARE ==
[~2023-12-06] VITALS: Ht 157.5 cm; Wt 122.5 kg
[~2023-12-06 15:37] MED LIST changes: -ACET-2743 PO; +ALPR-411 PO; +AMLO-257 PO; +AMYL1CAP63 PO; -BUDE3CAP7 PO; +CARV25TA PO; -CLOP75TA32 PO; -DEXL60CA6 PO; +FAMO20TA8 PO; -FAMO40TA7 PO; -FURO40TA5 PO; +HYDR-4419 PO; -LORA-192 PO; +MELA5TAB20 PO; -MULT-1203 PO; +MUPI15CR12 TP; +NITR0.3T11 SL; +ONDA-104 PO; -ONDA4TAB10 PO; +PROG100C11 PO; +[UNRECOGNIZED DRUG - CODE] TP
[2023-12-06] MEDS: IPRATROPIUM/ALBUTEROL SULFATE 3 ML SOLUTION IH STA (16:13)
[2023-12-06 16:17] VITALS: PULSE 108; RESP 24
[2023-12-06 16:28] LABS: BASOPHILS # (AUTO) 0.05 K/uL (0.00-0.20); BASOPHILS % (AUTO) 0.7 % (0.0-5.0); EOSINOPHILS # (AUTO) 0.06 K/uL (0.00-0.70); EOSINOPHILS % (AUTO) 0.8 % (0.0-8.0); HEMATOCRIT 26.6 % (36-48); IMMATURE GRANULOCYTE ABSOLUTE 0.04 K/uL (0-1); LYMPHOCYTES # (AUTO) 1.4 K/uL (1.0-4.8); LYMPHOCYTES % (AUTO) 18.1 % (21.0-51.0); MEAN CORPUSCULAR HEMOGLOBIN 27.2 pg (27.0-33.0); MEAN CORPUSCULAR HGB CONC 31.2 g/dL (32.0-36.0); MEAN CORPUSCULAR VOLUME 87.2 fL (79-99); MONOCYTES # (AUTO) 0.6 K/uL (0.1-1.0); MONOCYTES % (AUTO) 8.4 % (3.0-13.0); NEUTROPHILS # (AUTO) 5.5 K/uL (1.8-7.7); NEUTROPHILS % (AUTO) 71.5 % (40.0-77.0); PLATELET COUNT (AUTO) 264 K/uL (130-400); RED BLOOD CELL COUNT(AUTO) 3.05 MIL/uL (4.00-5.50); RED CELL DISTRIBUTION WIDTH 23.5 % (11.0-15.5); WHITE BLOOD COUNT (AUTO) 7.6 K/uL (4.8-10.8)
[2023-12-06] MEDS: ACETAMINOPHEN 500 MG TABLET PO SCH (16:30)
[2023-12-06 16:45] LABS: CREATININE 0.8 mg/dL (0.5-1.0); POTASSIUM 3.5 mmol/L (3.5-5.1)
[2023-12-06 16:54] LABS: ALBUMIN 2.8 g/dL (3.5-5.0); BILIRUBIN,TOTAL 0.2 mg/dL (0.2-1.0); MAGNESIUM 1.8 mg/dL (1.80-2.40); TOTAL PROTEIN, SERUM 6.1 g/dL (6.0-8.3)
[2023-12-06 16:55] LABS: B-TYPE NATRIURETIC PEPTIDE 40 pg/mL (0-100)
[2023-12-06 17:59] LABS: ADD UA MICROSCOPIC YES; APPEARANCE,URINE TURBID (CLEAR); BILIRUBIN,URINE NEGATIVE (NEGATIVE); COLOR,URINE LIGHT-ORANGE (YELLOW); GLUCOSE, URINE (UA) NEGATIVE (NEGATIVE); KETONES,URINE NEGATIVE (NEGATIVE); LEUKOCYTE ESTERASE ,URINE 500 Leu/uL (NEGATIVE); NITRATE,URINE 2+ (NEGATIVE); OCCULT BLOOD,URINE LARGE (NEGATIVE); PROTEIN,URINE 200 mg/dL (NEGATIVE); UROBILINOGEN,URINE 0.2 mg/dL (0.2-1.0)
[2023-12-06 18:14] LABS: BACTERIA,URINE MANY /HPF (None Seen); MUCUS,URINE MOD LPF (None Seen); RBC,URINE TNTC /HPF (0-1); SQUAMOUS EPITHELIAL CELL,UR FEW /HPF (0-2); WBC,URINE TNTC /HPF (0-1); YEAST,URINE BUDDING RARE /HPF (None Seen)
[2023-12-06] MEDS: CEFTRIAXONE 2GM VIAL IVPB SCH (18:31)
[2023-12-06] MEDS: MORPHINE 2 MG SYG IVP ONE (18:59)
[2023-12-06] MEDS: ONDANSETRON 4MG INJ ONE (18:59)
[2023-12-06] MEDS: CALCIUM GLUC 1GM 1 GM in 0.9%NACL 100ML 100 ML IV SCH (19:29)
[2023-12-06] MEDS: CALCIUM GLUC 1GM/10ML VIAL ONE (20:28)
[2023-12-06] MEDS: LORAZEPAM 1 MG TABLET PO ONE (20:34)
[2023-12-06] MEDS ORDERED: BACL5TAB PO (21:06)
[2023-12-06] MEDS ORDERED: AMOX1TAB16 PO (21:06)
[2023-12-06 23:00] VITALS: BP 127/79; PULSE 68; RESP 20; O2SAT 97
== END 2023-12-06 23:39 | disposition home or self-care (01) ==
LOC: EDH 15:37
DX: N30.01 Acute cystitis with hematuria (principal); G25.0 Essential tremor; E83.51 Hypocalcemia; Z99.81 Dependence on supplemental oxygen; E66.01 Morbid (severe) obesity due to excess calories; I11.0 Hypertensive heart disease with heart failure; N18.9 Chronic kidney disease, unspecified; F41.9 Anxiety disorder, unspecified; F32.A Depression, unspecified; K21.9 Gastro-esophageal reflux disease without esophagitis; M79.7 Fibromyalgia; Z90.49 Acquired absence of other specified parts of digestive tract; Z68.42 Body mass index [BMI] 45.0-49.9, adult; Z79.899 Other long term (current) drug therapy; Z90.710 Acquired absence of both cervix and uterus; Z98.890 Other specified postprocedural states
CPT/HCPCS: 99285; 96365; 96375; 71045; 96367; 83735; 84484; 80053; 83880; 85025; 87040 ×2; 87077; 87088; 87186; 83605; 81001; 36415; 51702; 94640; 93005; J0612; J2270; J0696; J2405

== ENCOUNTER 2023-12-18 11:10 | Emergency (ER) | payer MEDICARE ==
[~2023-12-18] VITALS: Ht 167.6 cm; Wt 90.7 kg
[~2023-12-18 11:10] MED LIST changes: +AMOX1TAB16 PO; +BACL5TAB PO; +HYDR100T15 PO; -HYDR100T27 PO
[2023-12-18 12:13] LABS: BASOPHILS # (AUTO) 0.04 K/uL (0.00-0.20); BASOPHILS % (AUTO) 0.6 % (0.0-5.0); EOSINOPHILS # (AUTO) 0.11 K/uL (0.00-0.70); EOSINOPHILS % (AUTO) 1.5 % (0.0-8.0); HEMATOCRIT 28.9 % (36-48); IMMATURE GRANULOCYTE ABSOLUTE 0.02 K/uL (0-1); LYMPHOCYTES # (AUTO) 0.9 K/uL (1.0-4.8); LYMPHOCYTES % (AUTO) 12.3 % (21.0-51.0); MEAN CORPUSCULAR HEMOGLOBIN 26.9 pg (27.0-33.0); MEAN CORPUSCULAR HGB CONC 30.1 g/dL (32.0-36.0); MEAN CORPUSCULAR VOLUME 89.2 fL (79-99); MONOCYTES # (AUTO) 0.6 K/uL (0.1-1.0); MONOCYTES % (AUTO) 8.3 % (3.0-13.0); NEUTROPHILS # (AUTO) 5.6 K/uL (1.8-7.7); PLATELET COUNT (AUTO) 251 K/uL (130-400); RED BLOOD CELL COUNT(AUTO) 3.24 MIL/uL (4.00-5.50); RED CELL DISTRIBUTION WIDTH 21.5 % (11.0-15.5); WHITE BLOOD COUNT (AUTO) 7.2 K/uL (4.8-10.8)
[2023-12-18 12:29] LABS: CREATININE 0.7 mg/dL (0.5-1.0); POTASSIUM 3.7 mmol/L (3.5-5.1)
[2023-12-18 12:33] LABS: ALBUMIN 2.7 g/dL (3.5-5.0); BILIRUBIN,TOTAL 0.4 mg/dL (0.2-1.0); TOTAL PROTEIN, SERUM 6.3 g/dL (6.0-8.3)
[2023-12-18 12:41] LABS: ABG OXYGEN SATURATION 94.4 % (95.0-99.0); BASE EXCESS,VENOUS BLOOD GAS 3.6 (-2.0-3.0); HCO3,VENOUS BLOOD GAS 27.7 (21.0-28.0); PCO2,VENOUS BLOOD GAS 40 (32-45); PO2,VENOUS BLOOD GAS 75.4 mmHg (35.0-45.0); VENT MODE, BG RA (ROOM AIR)
[2023-12-18 12:50] LABS: AMPHET/METH SCREEN,URINE NEGATIVE (NEGATIVE); APPEARANCE,URINE CLEAR (CLEAR); BARBITURATE SCREEN, URINE NEGATIVE (NEGATIVE); BENZODIAZEPINES SCREEN,URINE NEGATIVE (NEGATIVE); BILIRUBIN,URINE NEGATIVE (NEGATIVE); CANNABINOID SCREEN,URINE POSITIVE (NEGATIVE); COCAINE SCREEN,URINE NEGATIVE (NEGATIVE); COLOR,URINE LIGHT-YELLOW (YELLOW); GLUCOSE, URINE (UA) NEGATIVE (NEGATIVE); KETONES,URINE NEGATIVE (NEGATIVE); LEUKOCYTE ESTERASE ,URINE 250 Leu/uL (NEGATIVE); NITRATE,URINE NEGATIVE (NEGATIVE); OCCULT BLOOD,URINE NEGATIVE (NEGATIVE); OPIATE SCREEN,URINE NEGATIVE (NEGATIVE); PHENCYCLIDINE SCREEN,URINE NEGATIVE (NEGATIVE); PROTEIN,URINE 10 mg/dL (NEGATIVE); UROBILINOGEN,URINE 0.2 mg/dL (0.2-1.0)
[2023-12-18 12:51] LABS: ADD UA MICROSCOPIC YES
[2023-12-18 12:56] LABS: ALCOHOL, BLOOD < 3 mg/dL (0-10); THYROID STIMULATING HORMONE 1.15 uIU/mL (0.36-3.74)
[2023-12-18 12:57] LABS: ACETAMINOPHEN < 1 mcg/mL (10-30); SALICYLATE < 2.8 mg/dL (2.8-20.0)
[2023-12-18 13:03] LABS: BACTERIA,URINE FEW /HPF (None Seen); MUCUS,URINE RARE LPF (None Seen); OTHER CASTS, URINE 2 /LPF (None Seen); SQUAMOUS EPITHELIAL CELL,UR FEW /HPF (0-2); TRANSITIONAL EPI CELLS,URINE RARE /HPF (None Seen); WBC,URINE 26-50 /HPF (0-1); YEAST,URINE BUDDING FEW /HPF (None Seen); YEAST,URINE HYPHAE RARE /HPF (None Seen)
[2023-12-18] MEDS: LEVETIRACETAM 500 MG/5 ML SD VIAL IV SCH (16:00)
[2023-12-18] MEDS: LEVETIRACETAM 500 MG/5 ML SD VIAL IV ONE (16:01)
[2023-12-18] MEDS: ONDANSETRON 4MG INJ IVP ONE (18:59)
[2023-12-18 21:11] VITALS: BP 156/79; PULSE 87; RESP 17; O2SAT 98
== END 2023-12-18 22:21 | disposition short-term general hospital (02) ==
LOC: EDH 11:10
DX: R56.9 Unspecified convulsions (principal); R40.4 Transient alteration of awareness; D64.9 Anemia, unspecified; I10 Essential (primary) hypertension; I48.91 Unspecified atrial fibrillation; M79.7 Fibromyalgia; Z79.890 Hormone replacement therapy; Z79.899 Other long term (current) drug therapy; Z95.5 Presence of coronary angioplasty implant and graft
CPT/HCPCS: 99285; 96365; 70450; 96366; 96375; 82947; 84443; 82435; 83735; 84132; 84295; 80053; 82803; 80305; 82140; 85025; 87077; 87088; 87186; 83605; 81001; 36415; 36600; G0481; J1953; J2405